=== PATIENT | male | born 1955 | race Caucasian/White ===

== ENCOUNTER 2018-03-09 09:55 | Emergency (ER) | payer OTHER ==
[~2018-03-09] VITALS: Ht 170.2 cm; Wt 102.1 kg
[2018-03-09 10:38] VITALS: BP 132/81
== END 2018-03-09 13:19 | disposition home or self-care (01) ==
LOC: ER 09:55
DX: S01.01XA Laceration without foreign body of scalp, initial encounter (principal); S63.501A Unspecified sprain of right wrist, initial encounter; M15.0 Primary generalized (osteo)arthritis; E11.9 Type 2 diabetes mellitus without complications; W01.0XXA Fall on same level from slipping, tripping and stumbling without subsequent striking against object, initial encounter; Y93.89 Activity, other specified; Y99.8 Other external cause status; Y92.89 Other specified places as the place of occurrence of the external cause
CPT/HCPCS: 12001; 70450; 73110; 93005

== ENCOUNTER 2018-04-16 14:26 | Emergency (ER) | payer OTHER ==
[~2018-04-16] VITALS: Ht 170.2 cm; Wt 102.1 kg
[2018-04-16 15:39] LABS: Basophils # (auto) 0.1 uL; Basophils % (auto) 1.2 % (0.0-2.0); Eosinophils # (auto) 0.6 uL; Eosinophils % (auto) 6.3 % (0.0-7.0); Hematocrit 45.5 % (41.0-53.0); Hemoglobin 16.3 g/dL (13.5-17.5); Lymphocytes # (auto) 3.1 uL; Lymphocytes % (auto) 35.2 % (10.0-50.0); Mean Corpuscular Hemoglobin 33.4 pg (28.0-32.0); Mean Corpuscular Hgb Conc. 35.7 g/dL (32.0-36.0); Mean Corpuscular Volume 93.5 fL (80.0-100.0); Monocytes # (auto) 0.7 uL; Monocytes % (auto) 8.3 % (0.0-12.0); Neutrophils # (auto) 4.3 uL; Nucleated Red Blood Cells % 0.1 %; Platelet Count (auto) 176 10^3/uL (140-450); Red Blood Cells 4.87 10^6/uL (4.5-5.90); Red Cell Distribution Width 13.1 % (11.8-14.3); White Blood Cell 8.7 10^3/uL (4.4-10.8)
[2018-04-16 15:53] LABS: INR 1.05 (0.9-1.15); Partial Thromboplastin Time 24.8 sec (23.78-33.04); Prothrombin Time 11.2 sec (9.27-12.13)
[2018-04-16 16:00] LABS: Alanine Aminotransferase 73 U/L (16-61); Albumin 4.4 g/dL (3.4-5.0); Alkaline Phosphatase 66 U/L (45-117); Anion Gap 11 (5-15); Aspartate Aminotransferase 41 U/L (15-37); BUN/Creatinine Ratio 18.3; Bilirubin, Total 0.8 mg/dL (0.2-1.0); Blood Urea Nitrogen 23 mg/dL (7-18); Calcium 9.2 mg/dL (8.5-10.1); Carbon Dioxide 25 mmol/L (21-32); Chloride 105 mmol/L (98-107); GFR African American 75 mL/min; GFR Non-African American 62 mL/min; Glucose 106 mg/dL (74-106); Sodium 141 mmol/L (136-145); Total Protein 7.5 g/dL (6.4-8.2)
[2018-04-16 16:18] LABS: Urine Amorphous Crystal FEW /hpf (None Seen); Urine Bacteria NONE SEEN /hpf (None Seen); Urine Blood Negative /uL (Negative); Urine Hyaline Cast FEW /lpf (0 - 2); Urine Mucus FEW (None Seen); Urine Specific Gravity 1.022 (1.001-1.035); Urine WBC 1 /hpf (0 - 3)
[2018-04-16 17:01] VITALS: BP 138/90
== END 2018-04-16 17:03 | disposition home or self-care (01) ==
LOC: ER 14:35
DX: R42 Dizziness and giddiness (principal); R51 Headache; E11.9 Type 2 diabetes mellitus without complications; I25.2 Old myocardial infarction; I50.9 Heart failure, unspecified
CPT/HCPCS: 36415; 70450; 71046; 80053; 81001; 83880; 84484; 85025; 85610; 85730; 93005

== ENCOUNTER 2023-03-27 06:45 | Day surgery (SDC) | payer OTHER ==
[2023-03-27] VITALS (12 sets, daily range): BP systolic 121–139; BP diastolic 72–86
[~2023-03-27] VITALS: Ht 170.2 cm; Wt 81.6 kg
[~2023-03-27 06:45] MED LIST: ALBU108A14 IN; ASPI-543 PO; ATO40T PO; CAR125T PO; GLIP5TAB12 PO; HYDR25TA5 PO; IPRAAER6 IN; ISOS20TA5 PO; METF-371 PO; SACU1TAB PO; SERT-206 PO; SPIR25TA8 PO; TAMS0.4C36 PO
[2023-03-27] MEDS ORDERED: IODIXANOL 320MG/ML 100ML BTL IV ONE ×2 (07:38→08:09)
[2023-03-27] MEDS ORDERED: LIDOCAINE 2%HCL (LOCAL ANESTH.) INJ 20ML MDV ONE (07:38)
[2023-03-27] MEDS ORDERED: fentaNYL CITRATE 100 MCG/2 ML VL ONE (07:40)
[2023-03-27] MEDS ORDERED: VERAPAMIL 2.5MG/ML INJ 2ML VIAL IV ONE (07:40)
[2023-03-27] MEDS ORDERED: ANGIOMAX 250 MG VIAL IV ONE (07:40)
[2023-03-27] MEDS ORDERED: MIDAZOLAM HCL 2MG/2ML 2ml VIAL (1mg/ml) ONE (07:40)
[2023-03-27] MEDS ORDERED: HEPARIN SODIUM (PORCINE) 5000 UNITS/ML 1ML VIAL ONE (07:40)
[2023-03-27] MEDS ORDERED: SODIUM CHL 0.9% 50 ML ONE (07:41)
[2023-03-27] MEDS ORDERED: ASPirin 325 MG TAB ONE (08:23)
[2023-03-27] MEDS ORDERED: TICAGRELOR 90 MG TAB ONE (08:23)
== END 2023-03-27 11:33 | disposition home or self-care (01) ==
LOC: CATH 06:45
PROVIDERS: ATTEND Internal Medicine Cardiovascular Disease
DX: I25.10 Atherosclerotic heart disease of native coronary artery without angina pectoris (principal); I10 Essential (primary) hypertension; E78.5 Hyperlipidemia, unspecified; I50.20 Unspecified systolic (congestive) heart failure; E11.9 Type 2 diabetes mellitus without complications; I25.5 Ischemic cardiomyopathy; J44.9 Chronic obstructive pulmonary disease, unspecified; Z79.84 Long term (current) use of oral hypoglycemic drugs; Z79.82 Long term (current) use of aspirin; Z79.899 Other long term (current) drug therapy
CPT/HCPCS: 76937; 93458; C1725; C1769; C1874; C1887; C1894; C9600; J0583; J1644; J2250; J3010; Q9967; 99152; 99153